=== PATIENT | female | born 1985 | race Caucasian/White ===

== ENCOUNTER 2016-09-20 00:23 | Emergency (ER) | payer SELFPAY ==
[2016-09-20 00:33] VITALS: BP 123/78
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
[2016-09-20] MEDS ORDERED: KETOROLAC TROMETHAMINE 60 MG/2 ML VIAL IM ONE ×2 (01:56→01:57)
== END 2016-09-20 02:15 | disposition home or self-care (01) ==
LOC: ER 00:23
DX: S00.83XA Contusion of other part of head, initial encounter (principal); S40.022A Contusion of left upper arm, initial encounter; F17.200 Nicotine dependence, unspecified, uncomplicated

== ENCOUNTER 2016-10-21 18:31 | Emergency (ER) | payer MEDICAID ==
[2016-10-21] MEDS ORDERED: NORMAL SALINE 1,000 ML IV ONE (19:27)
[2016-10-21] MEDS ORDERED: PROMETHAZINE HCL 12.5 MG in DEXTROSE 5 % IN WATER 50 ML IV ONE ×2 (19:27)
--- NOTE | 2016-10-21 19:31 | ERNOTE ---
Medical Problem HPI - Narrative Date of Service: 10/21/16 - General Chief Complaint: Nausea/Vomiting Time Seen by Provider: 10/21/16 19:19 Source: patient Exam Limitations: no limitations - Immun/Allergies/Home Medications Immunizations: IMMUNIZATION HX Immunizations Up to Date Yes History of Influenza Vaccine No Hx Pneumococcal Vaccination No Allergies/Adverse Reactions: Allergies hydrocodone bitartrate [From Vicodin] Allergy (Verified 09/20/16 00:24) Itching Home Medications: HOME MEDICATIONS ALPRAZolam [Xanax] 2 mg PO TID 07/08/16 [Last Taken Unknown] Sertraline HCl [Zoloft] 50 mg PO DAILY 10/21/16 [Last Taken Unknown] - History of Present History Narrative: Last night, didn't feel well. About 4 this morning, woke up vomiting. Too many times to count, just stomach contents. At about the same time, watery diarrhea, too many times to count. No blood in either. Weak. A little headache. Chills and sweats. Timing: intermittent - last had vomiting and diarrhea about an hour ago Severity: moderate Modifying Factors - (Improves): Present: other - nothing Modifying Factors - (Worsens): Present: eating - or drinking Review of Systems - Review of Systems Constitutional: Present: chills, diaphoresis, weakness, fatigue, malaise, decreased activity level EYE: Present: no symptoms reported ENT: Present: no symptoms reported Respiratory: Present: no symptoms reported Cardiology: Present: no symptoms reported Gastrointestinal/Abdominal: Present: See HPI Genitourinary: Present: no symptoms reported Musculoskeletal: Present: no symptoms reported Skin: Present: no symptoms reported Neurological: Present: dizziness/light-headedness Endocrine: Present: no symptoms reported Hematologic/Lymphatic: Present: no symptoms reported Psych: Present: other - under more family stress lately All Other Systems: All systems neg except as marked - Patient's Past Medical History Patient History - Medical: Anemia, Anxiety, Depression Patient History - Cardiac/Respiratory: No pertinent hx Patient History - Cancer: No Hx of Cancer Patient History - Surgical Procedures: Tubal Ligation, T & A, Other Patient History - Other: None LMP (females 10-50): 1 month LMP (Calendar): 10/02/16 - Social History Living Situations: home Abuse History: No History of abuse Psych History: Hx of Anxiety, Hx of Depression Smoking Status: Current every day smoker Patient requests Smoking Cessation Consult: No Initiate information on Smoking Cessation: No Alcohol Use: rarely Drug Use: marijuana, meth - Immunizations Immunizations Up to Date: Yes Hx Pneumococcal Vaccination: No History of Influenza Vaccine: No Physical Exam - Physical Exam General Appearance: Present: wd/wn, alert, no apparent distress Eye Exam: Normal inspection: bilateral, PERRL: bilateral, EOMI: bilateral Ears, Nose, Throat: Present: normal ENT inspection, hearing grossly normal Neck: Present: normal inspection, nontender Respiratory: Present: no respiratory distress, normal breath sounds Cardiovascular/Chest: Present: regular rate, rhythm, no murmur Gastrointestinal/Abdominal: Present: normal bowel sounds, nondistended, soft, no organomegaly, tenderness - diffusely mildly tender Back Exam: Present: normal inspection Extremity Exam: Present: normal inspection, non-tender, no edema Neurological Exam: Present: alert, oriented, normal mood/affect Skin Exam: Present: normal color, warm/dry ED Progress - Vital Signs Patient's Vital Signs:: I have reviewed the patient's vital signs. Vital Signs: Vital Signs 10/21/16 18:58 Temperature 36.7 C Pulse Rate 104 H Respiratory 18 Rate Blood Pressure 150/98 O2 Sat by Pulse 98 Oximetry - Progress/Reassessment Chief Complaint: Nausea/Vomiting - Transfer of Care Physician Sign Out: Geoffrey Arana Receiving Physician: Katlin Juarez Pending Results: Labs Expected Disposition: Discharge Departure - Departure Clinical Impression: Viral gastroenteritis Disposition: Home self-care Condition: Fair
[2016-10-21 19:43] LABS: Mean Cell Volume 88.7 fl (78-100); Mean Corpuscular Hemoglobin 30.9 pg (27-31); Mean Corpuscular Hgb Conc 34.9 g/dl (32-36); Mean Platelet Volume 10.3 fl (6.0-9.5); Neutrophil # 8.3 K/mm3 (1.3-6.0); Neutrophil % 62.8 % (42-75.0); Platelet Count 375 K/mm3 (150-450); Red Blood Count 4.85 M/mm3 (4.2-5.4); Red Cell Distribution Width 11.6 % (11.5-14.0); White Blood Count 13.3 K/mm3 (4.0-10.5)
[2016-10-21 19:55] LABS: Anion Gap 8.8 mmol/L (6.8-13.8); BUN/Creatinine Ratio 13.8 (9.0-21.6); Calcium * 9.6 mg/dL (7.9-10.9); Carbon Dioxide 28.4 mmol/L (24-32.6); Estimated Creat Clear 66.7; Potassium 3.2 mmol/L (3.4-4.6)
[2016-10-21 20:04] LABS: Urine Appearance Slightly Cloudy; Urine Bilirubin Negative (NEGATIVE); Urine Color Dark Yellow
[2016-10-21 20:05] LABS: Urine Ketone 15 mg/dL (NEGATIVE); Urine Nitrite Negative (NEGATIVE); Urine Protein Negative (NEGATIVE); Urine Urobilinogen Normal (NORMAL)
[2016-10-21 20:07] LABS: Urine Blood 10 /ul (NEGATIVE)
[2016-10-21 20:08] LABS: Urine Bacteria None Seen; Urine RBC None Seen /hpf (0-5); Urine WBC 0-5 /hpf (0-5)
[2016-10-21] MEDS ORDERED: POTASSIUM CHLORIDE 20 MEQ TABLET.SA PO ONE (20:25)
[2016-10-21] MEDS ORDERED: POTASSIUM CHLORIDE 20 MEQ TABLET.SA ONE (20:30)
[2016-10-21 21:52] VITALS: BP 134/71
== END 2016-10-21 20:55 | disposition home or self-care (01) ==
LOC: ER 18:31
DX: A08.4 Viral intestinal infection, unspecified (principal); F17.210 Nicotine dependence, cigarettes, uncomplicated; F41.9 Anxiety disorder, unspecified; F32.9 Major depressive disorder, single episode, unspecified

== ENCOUNTER 2017-03-22 15:28 | Emergency (ER) | payer SELFPAY ==
[2017-03-22] MEDS ORDERED: ORPHENADRINE CITRATE 30 MG/ML VIAL IM ONE (15:51)
[2017-03-22] MEDS ORDERED: KETOROLAC TROMETHAMINE 60 MG/2 ML VIAL IM ONE ×2 (15:51→15:58)
[2017-03-22] MEDS ORDERED: ORPHENADRINE CITRATE 30 MG/ML VIAL ONE (15:58)
[2017-03-22 17:00] VITALS: BP 130/82
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
== END 2017-03-22 18:20 | disposition home or self-care (01) ==
LOC: ER 15:28
DX: S76.011A Strain of muscle, fascia and tendon of right hip, initial encounter (principal); F17.200 Nicotine dependence, unspecified, uncomplicated; W01.0XXA Fall on same level from slipping, tripping and stumbling without subsequent striking against object, initial encounter